=== PATIENT | male | born 1975 | race Caucasian/White ===

== ENCOUNTER → 2016-09-06 | Outpatient (CLI) | payer BC ==
--- NOTE | 2016-09-06 13:04 | RADRPT ---
PROCEDURE: XR Lumbar Spine. CLINICAL INDICATION: Back pain. TECHNIQUE: 2 views. Frontal and lateral. COMPARISON: No prior studies are available for comparison. FINDINGS: There is normal stature and alignment of the vertebrae. There is no fracture. There is no lytic or blastic lesion. The disk height is normal. The paravertebral soft tissues are unremarkable. IMPRESSION: 1. Unremarkable images of the lumbar spine. RPTAT: QQ .Hiram Rahman MD, MD Date Time Electronically viewed and signed by .Hiram Rahman MD, MD on 09/06/2016 13:04 .R/
== END | disposition home or self-care (01) ==
LOC: EDSEX 09:48 → RAD 09:48
PROVIDERS: ATTEND Family Medicine
DX: M54.30 Sciatica, unspecified side (principal); M54.9 Dorsalgia, unspecified
CPT/HCPCS: 72100